=== PATIENT | female | born 1995 | race American Indian/Alaskan Native ===

== ENCOUNTER 2017-05-11 15:19 | Emergency (ER) | payer MEDICAID ==
[2017-05-11 15:56] VITALS: TEMP 98.2; O2SAT 99
--- NOTE | 2017-05-11 16:35 | ED PDOC ---
Arrival/HPI - General Chief Complaint: Female Genitourinary Time Seen by Provider: 05/11/17 15:56 Historian: Patient - History of Present Illness Narrative History of Present Illness (Text): 05/11/17 16:32 21yr old female presents today requesting test. pt states she received an email from the [employer] stating that she needs confirmation of negative test to start boot [employer]. pt states LMP was last night. denies any pain. no fever/chills. no other complaints. Past Medical History - Provider Review Nursing Documentation Reviewed: Yes - Travel History Have you recently traveled outside [place] w/in the past 3 mons?: No - Infectious Disease Hx of Infectious Diseases: None - Reproductive Menopause: No - Psychiatric Hx Substance Use: No - Anesthesia Hx Anesthesia: No Family/Social History - Physician Review Nursing Documentation Reviewed: Yes Family/Social History: Unknown Family HX Smoking Status: Unknown If Ever Smoked Hx Alcohol Use: No Hx Substance Use: No Allergies/Home Meds Allergies/Adverse Reactions: Allergies No Known Allergies Allergy (Verified 05/11/17 15:56) Home Medications: Home Meds Medication Instructions Recorded Confirmed No Known Home Med 05/11/17 05/11/17 Review of Systems - Review of Systems Constitutional: absent: Fatigue, Fevers Respiratory: absent: SOB, Cough Cardiovascular: absent: Chest Pain, Palpitations Gastrointestinal: absent: Abdominal Pain, Nausea, Vomiting Genitourinary Female: absent: Dysuria, Frequency, Hematuria, Vaginal Bleeding, Vaginal Discharge Musculoskeletal: absent: Arthralgias, Back Pain Skin: absent: Rash, Pruritis Neurological: absent: Headache, Dizziness Physical Exam Vital Signs Reviewed: Yes Vital Signs Temp Pulse Resp BP Pulse Ox 05/11/17 15:53 98.2 F 82 16 101/67 99 Temperature: Afebrile Blood Pressure: Normal Pulse: Regular Respiratory Rate: Normal Appearance: Positive for: Well-Appearing, Non-Toxic, Comfortable Pain Distress: None Mental Status: Positive for: Alert and Oriented X 3 - Systems Exam Head: Present: Atraumatic Mouth: Present: Moist Mucous Membranes Neck: Present: Normal Range of Motion Respiratory/Chest: Present: Clear to Auscultation, Good Air Exchange. No: Respiratory Distress, Accessory Muscle Use Cardiovascular: Present: Regular Rate and Rhythm, Normal S1, S2. No: Murmurs Abdomen: No: Tenderness, Rebound, Guarding Back: Present: Normal Inspection Upper Extremity: Present: Normal Inspection Lower Extremity: Present: Normal Inspection Neurological: Present: GCS=15, Speech Normal Skin: Present: Warm, Dry, Normal Color. No: Rashes Psychiatric: Present: Alert, Oriented x 3 Medical Decision Making ED Course and Treatment: 05/11/17 16:34 21yr old female presents needing confirmation of negative test. beta hcg; negative advised patient of results. advised f/u with pmd. impression; well adult visit follow up with the primary care physician return if symptoms worsen,persist or if new symptoms develop. - Lab Interpretations Lab Results: Lab Results 05/11/17 16:30: Beta HCG, Quant < 2.39 Disposition/Present on Arrival - Present on Arrival Any Indicators Present on Arrival: No History of DVT/PE: No History of Uncontrolled Diabetes: No Urinary Catheter: No History of Decub. Ulcer: No History Surgical Site Infection Following: None - Disposition Have Diagnosis and Disposition been Completed?: Yes Diagnosis: Well adult exam, Encounter for test with result negative Disposition Time: 17:25 Patient Plan: Discharge Patient Problems: Current Active Problems Problem Status Onset Encounter for test with result negative Acute Well adult exam Acute Condition: GOOD Additional Instructions: follow up with the primary care physician return if symptoms worsen,persist or if new symptoms develop. Referrals: May Ortiz DO [Primary Care Provider] - Follow up with primary Forms: [facility] ([employer])
[2017-05-11 20:05] VITALS: BP 112/83; PULSE 76; RESP 18
== END 2017-05-11 17:26 | disposition home or self-care (01) ==
LOC: ED 15:19
DX: Z00.00 Encounter for general adult medical examination without abnormal findings (principal); Z32.02 Encounter for pregnancy test, result negative